=== PATIENT | female | born 1950 | race Caucasian/White ===

== ENCOUNTER → 2016-10-23 | Outpatient (CLI) | payer OTHER | LOC: FIMAGING 12:17 | PROVIDERS: ATTEND Internal Medicine | DX: Z12.31 Encounter for screening mammogram for malignant neoplasm of breast (principal) | CPT/HCPCS: G0202 ==

== ENCOUNTER 2016-11-17 09:22 | Inpatient (IN) | payer OTHER ==
--- NOTE | 2016-11-17 08:17 | PDHPUP ---
History & Physical Update H&P update statement: This history and physical update is based on an assessment of the patient which was completed after admission or registration (within 24 hours), but prior to the surgery/procedure.
[2016-11-17] MEDS ORDERED: ROPIVACAINE 0.2% 80 MG, EPINEPHrine 0.2 MG, KETOROLAC TROMETHAMINE 30 MG in BAG 0 ML IU ONE (09:43)
[2016-11-17] MEDS ORDERED: FAMOTIDINE 20 MG TAB PO ONE (09:43)
[2016-11-17] MEDS ORDERED: ACETAMINOPHEN 325 MG TAB PO ONE (09:43)
[2016-11-17] MEDS ORDERED: ceFAZolin 2 GM/DEXTROSE 100 ML IV ONE ×2 (09:43)
[2016-11-17] MEDS ORDERED: DEXAMETHASONE 4 MG/ML VIAL IVP ONE (09:43)
[2016-11-17] MEDS ORDERED: LR 1,000 ML IV ONE (09:46)
[2016-11-17] MEDS ORDERED: LIDOCAINE 1% 2 ML INJ ID PRN (09:46)
[2016-11-17] MEDS ORDERED: THROMBIN (BOVINE) 5,000 UNIT VIAL TP ONE (10:20)
[2016-11-17] MEDS ORDERED: ceFAZolin 1 GM/5 ML SYR ONE (10:20)
[2016-11-17] MEDS ORDERED: ONDANSETRON 4 MG/2 ML VIAL IVP ONE (10:30)
[2016-11-17] MEDS ORDERED: MIDAZOLAM 2 MG/2 ML VIAL IVP ONE (11:17)
--- NOTE | 2016-11-17 11:23 | PDANEPAE ---
ANE History of Present Illness tka ANE Past Medical History - Cardiovascular History Hx Hypertension: Yes Hx Arrhythmias: Yes Hx Chest Pain: No Hx Coronary Artery / Peripheral Vascular Disease: No Hx CHF / Valvular Disease: No Hx Palpitations: No Cardiovascular History Comment: PVC'S - Pulmonary History Hx COPD: No Hx Asthma/Reactive Airway Disease: No Hx Recent Upper Respiratory Infection: No Hx Oxygen in Use at Home: No Hx Sleep Apnea: No Sleep Apnea Screening Result - Last Documented: Negative Pulmonary History Comment: FAT PE POST OP L TKA - Neurologic History Hx Cerebrovascular Accident: No Hx Seizures: No Hx Dementia: No - Endocrine History Hx Diabetes: No Endocrine History Comment: HYPOTHYROIDISM - Renal History Hx Renal Disorders: No - Liver History Hx Hepatic Disorders: No - Neurological & Psychiatric Hx Hx Neurological and Psychiatric Disorders: No - Cancer History Hx Cancer: No - Congenital Disorder History Hx Congenital Disorders: No - GI History Hx Gastrointestinal Disorders: Yes Gastrointestinal History Comment: FOOD ALLERGIES - Other Health History Other Health History: NEG - Chronic Pain History Chronic Pain: Yes (R KNEE) - Surgical History Prior Surgeries: L TKA. RIGHT KNEE SCOPE AND LEFT KNEE. CATARACTS. CHOLECYSTECTOMY. BUNIONECTOMY LEFT ANE Review of Systems - Exercise capacity METS (RN): 4 METS ANE Patient History - Allergies Allergies/Adverse Reactions: almond oil Allergy (Verified 10/10/15 11:13) Diarrhea schultz Allergy (Verified 10/10/15 11:13) Diarrhea Beans Allergy (Verified 10/10/15 11:13) Diarrhea hernandez flavor Allergy (Verified 10/10/15 11:13) Diarrhea corn Allergy (Verified 10/10/15 11:13) Diarrhea gluten Allergy (Verified 10/10/15 11:13) Diarrhea hazelnut Allergy (Verified 10/10/15 11:13) Diarrhea meperidine HCl [From Demerol] Allergy (Verified 11/12/15 15:21) Hives peanut Allergy (Verified 10/10/15 11:13) Diarrhea peas Allergy (Verified 10/10/15 11:13) Diarrhea sesame oil [Sesame] Allergy (Verified 10/10/15 11:13) Diarrhea squash Allergy (Verified 10/10/15 11:13) Diarrhea sunflower seed Allergy (Verified 10/10/15 11:13) Diarrhea sweet potato Allergy (Verified 10/10/15 11:13) Diarrhea turkey Allergy (Verified 10/10/15 11:13) Diarrhea wheat Allergy (Verified 10/10/15 11:13) Diarrhea RYE Allergy (Uncoded 10/10/15 11:13) Diarrhea - Home Medications Home Medications: Ascorbic Acid [Vitamin C 500 mg (*)] 500 mg PO DAILY 10/10/15 [Last Taken 1 Week Ago] Acetaminophen [Tylenol 325mg (*)] 325 mg PO TID 10/30/16 [Last Taken 11/16/16 12 :00] Cholecalciferol Vit D3 [Vitamin D3 2000 units tab (OTC)] 2,000 units PO DAILY [Last Taken 11/10/16] traMADol [Ultram 50 mg (*)] 50 mg PO DAILY PRN 10/30/16 [Last Taken 11/17/16 00: 00] - NPO status NPO Since - Liquids (Date): 11/17/16 NPO Since - Liquids (Time): 08:00 NPO Since - Solids (Date): 11/16/16 NPO Since - Solids (Time): 23:30 - Anes Hx Anes Hx: no prior problems - Smoking Hx Smoking Status: Never smoked - Family Anes Hx Family Hx Anesthesia Complications: NEG ANE Labs/Vital Signs - Vital Signs Blood Pressure: 133/98 Heart Rate: 81 Respiratory Rate: 16 O2 Sat (%): 93 Height: 163.83 cm Weight: 74.843 kg ANE Physical Exam - Airway Mallampati Score: Class 2 Mouth exam: normal dental/mouth exam - Pulmonary Pulmonary: no respiratory distress - Cardiovascular Cardiovascular: regular rate and rhythym - ASA Status ASA Status: II ANE Anesthesia Plan Anesthesia Plan: spinal Regional Anesthesia: adductor canal FNB
[2016-11-17] MEDS ORDERED: LIDOCAINE 2% 5 ML SDV ONE (11:33)
[2016-11-17] MEDS ORDERED: PROPOFOL/EMULSION 500 MG/50 ML BOTTLE IV ONE ×2 (11:35→12:51)
[2016-11-17] MEDS ORDERED: CALCIUM CHLORIDE 1 GM/10 ML INJ ONE (12:07)
[2016-11-17] MEDS ORDERED: ONDANSETRON 4 MG/2 ML VIAL IVP PRN ×2 (12:17→14:02)
[2016-11-17] MEDS ORDERED: LR 500 ML IV PRN (12:17)
[2016-11-17] MEDS ORDERED: NALOXONE HCL 0.4 MG/ML INJ IVP PRN (12:17)
[2016-11-17] MEDS ORDERED: fentaNYL 100 MCG/2 ML INJ ONE (12:27)
[2016-11-17] MEDS ORDERED: ROPIVACAINE HCL 150 MG/30 ML INJ ONE (13:35)
[2016-11-17] MEDS ORDERED: HYDROmorphONE/DILAUDID 1 MG/ML SYR ONE ×2 (14:02→14:27)
[2016-11-17] MEDS ORDERED: ONDANSETRON DISINTEGRATING 4 MG TAB PO PRN (14:02)
[2016-11-17] MEDS ORDERED: PROMETHAZINE HCL 25 MG/ML INJ IVP PRN (14:02)
[2016-11-17] MEDS ORDERED: MAGNESIUM HYDROXIDE 30 ML UDCUP PO PRN (14:02)
[2016-11-17] MEDS ORDERED: PHARMACY PAIN CONSULT 1 EA MISC PRN (14:02)
[2016-11-17] MEDS ORDERED: PROMETHAZINE HCL 25 MG SUPPR PR PRN (14:02)
[2016-11-17] MEDS ORDERED: traMADol 50 MG TAB PO PRN (14:02)
[2016-11-17] MEDS ORDERED: diphenhydrAMINE 25 MG CAP PO PRN (14:02)
[2016-11-17] MEDS ORDERED: POLYETHYLENE GLYCOL 3350 17 GM PKT PO PRN (14:02)
[2016-11-17] MEDS ORDERED: BISACODYL 10 MG SUPP PR PRN (14:02)
[2016-11-17] MEDS ORDERED: TEMAZEPAM 15 MG CAP PO PRN (14:02)
[2016-11-17] MEDS ORDERED: METOCLOPRAMIDE 10 MG/2 ML VIAL IVP PRN (14:02)
[2016-11-17] MEDS ORDERED: KETOROLAC 30 MG/1 ML SDV IVP PRN (14:02)
[2016-11-17] MEDS ORDERED: LACTULOSE 20 GM/30 ML UDCUP PO PRN (14:02)
[2016-11-17] MEDS: HYDROmorphONE/DILAUDID 1 MG/ML SYR IVP PRN ×6 (14:03→15:00)
--- NOTE | 2016-11-17 14:08 | POSTANESTH ---
Post Anesthetic Evaluation Cardiovascular Status: Normal, Stable, Tx Over/Under Hydration Respiratory Status: Normal, Stable Level of Consciousness/Mental Status: Can Participate in Eval Pain Control: Adequate, Prn Tx Ordered Nausea/Vomiting Control: Adequate, Prn Tx Ordered Complications Possibly Related to Anesthesia: None Noted
[2016-11-17] MEDS ORDERED: LR 1,000 ML IV SCH (14:30)
[2016-11-17] MEDS: oxyCODONE IR 5 MG TAB PO PRN ×3 (15:46→21:53)
[2016-11-17] MEDS: ACETAMINOPHEN 325 MG TAB PO SCH (17:05)
[2016-11-17] MEDS: CYCLOBENZAPRINE 10 MG TAB PO PRN (17:05)
[2016-11-17] MEDS: METOPROLOL SUCCINATE XR 25 MG TAB PO SCH (20:58)
[2016-11-17] MEDS: SENNOSIDES/DOCUSATE SODIUM TAB PO SCH (20:58)
[2016-11-17] MEDS: ASPIRIN 325 MG TAB PO SCH (20:59)
[2016-11-17] MEDS: ceFAZolin 2 GM/DEXTROSE 100 ML IV SCH (20:59)
[2016-11-17] MEDS: FAMOTIDINE 20 MG TAB PO SCH (20:59)
[2016-11-18] MEDS: ACETAMINOPHEN 325 MG TAB PO SCH ×4 (00:50→17:40)
[2016-11-18] MEDS: oxyCODONE IR 5 MG TAB PO PRN ×6 (00:58→21:16)
[2016-11-18] MEDS: LEVOTHYROXINE 125 MCG TAB PO SCH (05:04)
[2016-11-18] MEDS: ceFAZolin 2 GM/DEXTROSE 100 ML IV SCH (05:07)
[2016-11-18 05:21] LABS: HEMATOCRIT 32.7 % (38.0-47.0); HEMOGLOBIN 10.8 g/dL (12.6-16.3)
[2016-11-18] MEDS: FAMOTIDINE 20 MG TAB PO SCH ×2 (07:28→21:11)
[2016-11-18] MEDS: CYCLOBENZAPRINE 10 MG TAB PO PRN ×2 (08:41→16:21)
[2016-11-18] MEDS: SENNOSIDES/DOCUSATE SODIUM TAB PO SCH ×2 (08:42→21:09)
[2016-11-18] MEDS: ASPIRIN 325 MG TAB PO SCH (08:42)
[2016-11-18] MEDS: LOSARTAN POTASSIUM 50 MG TAB PO SCH (08:42)
--- NOTE | 2016-11-18 12:35 | SOAPPROG ---
SOAP Progress Note Assessment/Plan: Assessment: S/P right TKA, doing well Plan: 11/18/16 12:33 Continue PT/OT Home tomorrow Subjective: C/O nausea worse with activity Objective: Vital Signs Temp Pulse Resp BP Pulse Ox 36.7 C 67 16 122/60 H 94 11/18/16 11:11 11/18/16 11:11 11/18/16 11:11 11/18/16 11:11 11/18/16 11:11 Laboratory Results 11/18/16 05:00 11/17/16 11/18/16 11/19/16 05:59 05:59 05:59 Intake Total 1950 Output Total 1225 Balance 725 Dressing dry and intact N/V intact No calf tenderness ICD10 Worksheet Patient Problems: Problems Problem Status Onset Chest pain Acute Hypoxia Acute Knee osteoarthritis Acute
[2016-11-18] MEDS ORDERED: SCOPOLAMINE HYDROBROMIDE 1.5 MG PATCH TD SCH (12:45)
[2016-11-18] MEDS: METOPROLOL SUCCINATE XR 25 MG TAB PO SCH (21:10)
[2016-11-19] MEDS: ACETAMINOPHEN 325 MG TAB PO SCH ×4 (00:16→18:02)
[2016-11-19] MEDS: oxyCODONE IR 5 MG TAB PO PRN ×4 (03:10→18:03)
[2016-11-19 05:23] LABS: HEMATOCRIT 31.4 % (38.0-47.0); HEMOGLOBIN 10.3 g/dL (12.6-16.3)
[2016-11-19] MEDS: LEVOTHYROXINE 125 MCG TAB PO SCH (06:00)
[2016-11-19] MEDS: CYCLOBENZAPRINE 10 MG TAB PO PRN ×2 (06:07→14:36)
[2016-11-19] MEDS: ASPIRIN 325 MG TAB PO SCH (08:22)
[2016-11-19] MEDS: FAMOTIDINE 20 MG TAB PO SCH (08:23)
[2016-11-19] MEDS: SENNOSIDES/DOCUSATE SODIUM TAB PO SCH (08:23)
[2016-11-19] MEDS: LOSARTAN POTASSIUM 50 MG TAB PO SCH (08:23)
[2016-11-19 11:40] VITALS: RESP 15
--- NOTE | 2016-11-19 12:49 | PDIAF ---
- Diagnosis Code Status: Full Code - Medication Management Discharge Medications: Medications to Continue on Transfer Ascorbic Acid [Vitamin C 500 mg (*)] 500 mg PO DAILY 10/10/15 [Last Taken 1 Week Ago] Levothyroxine [Synthroid 125 mcg (*)] 125 mcg PO DAILY06 #0 tab 11/13/15 [Last Taken 11/17/16 08:00] Losartan Potassium [Cozaar 50 mg (*)] 50 mg PO DAILY #0 tab 11/13/15 [Last Taken 11/17/16 08:00] Metoprolol Succinate Xr [Toprol Xl 25 mg (*)] 25 mg PO HS #0 tab 11/13/15 [Last Taken 11/17/16 00:00] Acetaminophen [Tylenol 325mg (*)] 325 mg PO TID 10/30/16 [Last Taken 11/16/16 12 :00] Cholecalciferol Vit D3 [Vitamin D3 2000 units tab (OTC)] 2,000 units PO DAILY [Last Taken 11/10/16] traMADol [Ultram 50 mg (*)] 50 mg PO DAILY PRN 10/30/16 [Last Taken 11/17/16 00: 00] Acetaminophen [Tylenol 325mg (*)] 650 mg PO Q6HRS #0 tab 11/19/16 [Last Taken Unknown] Aspirin [Aspirin 325 mg (*)] 325 mg PO DAILY #0 tab 11/19/16 [Last Taken Unknown ] oxyCODONE IR [Oxycodone Ir (*)] 5 - 10 mg PO Q3HRS PRN #0 tab 11/19/16 [Last Taken Unknown] Discharge Medications: Refer to the Discharge Home Medication list for PRN reason. PICC Care - Routine: N/A - Orders Services needed: Home Care, Physical Therapy, Occupational Therapy Home Care Face to Face: I certify that this patient was under my care and that I had the required [id number] encounter meeting the encounter requirements on the discharge day. My findings support the fact that the patient is homebound as defined in CMS Chapter 7 Medicare Benefits Manual 30.1.1, The condition of the patient is such that there exists a normal inability to leave home and consequently, leaving home would require a considerable and taxing effort. Diet Recommendation: no restrictions on diet Diet Texture: Regular Texture Diet Wound Care Instructions: Keep wound dry and covered x2 weeks Sutures/[place] Site: Remove 10-14 days Activity/Weight Bearing Restrictions: WBAT with walker. ROM 0-90 degrees x 2 weeks. Keep wound dry and covered until follow up appt. - Follow Up Care Current Providers and Referrals: Dipak Terrazas MD [Primary Care Provider] - Sariah Khan MD [Medical Doctor] -
[2016-11-19 15:02] VITALS: BP 122/70; PULSE 104; TEMP 97.6; O2SAT 94
[2016-11-19] MEDS ORDERED: GADOBUTROL 10 ML VIAL IVP ONE (15:52)
--- NOTE | 2016-11-20 19:32 | GOP ---
[f rep st] OPERATIVE REPORT DATE OF OPERATION: 11/17/2016 SURGEON: Sariah Khan MD COOKER CASING: Suhail Madden, PAC ANESTHESIA: Spinal with sedation. PREOPERATIVE DIAGNOSIS: Severe osteoarthritis, right knee. POSTOPERATIVE DIAGNOSIS: Severe osteoarthritis, right knee. PROCEDURE PERFORMED: Right total knee arthroplasty. FINDINGS: Preoperative x-rays of the patient's right knee demonstrated severe osteoarthritis. This was tricompartmental arthritis with complete loss of the articular cartilage in all 3 compartments. The patient had marked osteophyte formation around the periphery of the joint. At this time of [facility], a cemented [employer] II posterior stabilized total knee arthroplasty was perfo rmed. A size 3 femoral component was cemented into place, and a size 3 tibial base plate was utiliz ed. A 9 mm thick polyethylene insert was utilized in the metal backing of the tibia. A 35 mm round patellar component was cemented into place as well. Following implantation of the components, the knee was taken through range of motion and achieved full extension and 135 degrees of flexion. The knee was stable to varus and valgus stressing, both in extension and 30 degrees of flexion. ESTIMATED BLOOD LOSS: Less than 100 cc. DESCRIPTION OF PROCEDURE: The patient was taken the operating room, placed in supine position on th e operating table. Following induction of adequate spinal anesthesia and IV sedation, the knee and leg were prepped and draped in usual sterile manner. The patient received 2 g of IV Ancef. The leg was elevated and exsanguinated, and the tourniquet inflated to 275 mmHg. A midline incision was made extending from 2 fingerbreadths superior to the superior pole of the pat elle distally to the tibial tubercle. Incision was carried down through the subcutaneous tissue to the retinaculum of the knee. A medial parapatellar arthrotomy was then performed. The patella was everted laterally and the thickness of the patella was measured. A 9 mm thick cut was taken from th e posterior aspect of the patella. The metal protector plate was then placed on the cut surface of the patella, and it was placed in the lateral gutter. The knee was flexed up, and the distal femoral drill hole was made. Intramedullary referencing was utilized for both the femoral and tibial cuts. A +2 cut was taken from the distal femur. The femur was then sized and a size 3 femoral component was noted to be the best fit. The size 3 cutting blo ck was placed on the distal femur and the anterior, posterior and chamfer cuts were made. The trial 3 femoral component was placed on the distal femur and the notch was cleared with the reamer follow ed by the box osteotome. The femoral component was then removed and a drill hole was placed in the proximal tibia. Again, intramedullary referencing was utilized for the tibial cuts. The tibial cut ting block was positioned and pinned, and then the tibia was cut. The tibia was sized. A size 3 ti bial component was again the best fit, so this was pinned into place and the keel punch was utilized . A trial reduction was performed with a 9 mm thick polyethylene, and the knee was stable and achie barbara good flexion and extension. The trial components were removed and the patella was prepared with placement of the peg drill holes . The bony surfaces were then irrigated and dried, and the cement was mixed. The tibial component was cemented 1st, followed by the femoral component, then the patellar component. Pressure was held on the components while cement hardened. Excess cement was removed from around the edges of the co mponents. The polyethylene was opened and inserted, and then the wound was thoroughly irrigated. P rior to placing the polyethylene insert, the posterior capsule was peppered with joint cocktail usin g a spinal needle. The retinaculum of the knee was closed using #2 FiberWire in a [id number] f ashion. The subcutaneous tissues were closed using 2-0 Vicryl. The skin was closed using isaias. Sterile dressings were applied. The patient tolerated the procedure well. There were no complications. Estimated blood loss minima l. Final sponge, needle and instrument counts were correct. The patient was transferred to the [facility] overy room in good condition. /[id number]/MODL
== END 2016-11-19 18:35 | disposition home health service (06) | DRG 470 ==
LOC: F3N 09:22
PROVIDERS: ADMIT Orthopaedic Surgery; ATTEND Orthopaedic Surgery
PROC: 0SRC0J9 Replacement of Right Knee Joint with Synthetic Substitute, Cemented, Open Approach (ICD-10-PCS; principal; 2016-11-17 11:15)
DX: M17.11 Unilateral primary osteoarthritis, right knee (principal); I10 Essential (primary) hypertension; E03.9 Hypothyroidism, unspecified
CPT/HCPCS: 97110-GP; 97116-GP; 97161-GP; 97165-GO; 97535-GO; A9585; C1713; G8978-GP-CK; G8979-GP-CI; G8980-GP-CI; G8987-GO-CI; G8988-GO-CI; J0171; J0690; J1100; J1170; J1885; J2250; J2405; J2704; J2795; J3010

== ENCOUNTER → 2017-11-10 | Outpatient (CLI) | payer OTHER | LOC: FIMAGING 11:26 | PROVIDERS: ATTEND Internal Medicine | DX: Z12.31 Encounter for screening mammogram for malignant neoplasm of breast (principal); Z80.3 Family history of malignant neoplasm of breast ==

== ENCOUNTER → 2018-06-08 | Outpatient (CLI) | payer OTHER | LOC: FIMAGING 13:49 | PROVIDERS: ATTEND Internal Medicine | DX: Z13.820 Encounter for screening for osteoporosis (principal); E07.9 Disorder of thyroid, unspecified; Z78.0 Asymptomatic menopausal state; Z79.899 Other long term (current) drug therapy ==